=== PATIENT | female | born 2000 ===

== ENCOUNTER 2023-08-25 08:53 | Outpatient (CLI) | payer BC ==
[2023-08-25] VITALS (21 sets, daily range): BP systolic 114–136; BP diastolic 73–95; PULSE 64–102
== END 2023-08-25 23:59 | disposition home or self-care (01) ==
LOC: CARD DIAG 08:53
PROVIDERS: ATTEND Internal Medicine Cardiovascular Disease
DX: I47.10 Supraventricular tachycardia, unspecified (principal); R55 Syncope and collapse
CPT/HCPCS: 93660